=== PATIENT | female | born 1935 | race Caucasian/White ===

== ENCOUNTER 2017-09-02 10:08 | Outpatient (CLI) | payer MEDICARE ==
--- NOTE | 2017-09-02 11:37 | ULT ---
BILATERAL RENAL ULTRASOUND: HISTORY: Urinary tract infections, 81-year-old female. DATE: 09/02/17. FINDINGS: Multiple longitudinal and transverse images of the kidneys and bladder are obtained using a multiher tz curvilinear transducer. Real-time and color flow images demonstrate both kidneys to be of normal contour, axis, and size. The right kidney measures 9.7 and the left kidney 10.0 cm from pole to po le. No evidence of renal parenchymal masses or lesions seen. No evidence of hydronephrosis is seen . The bladder has 3-dimensional measurements of 6.8 x 7.2 x 7.6 cm with 3D volume of 196 mL. IMPRESSION: Normal renal ultrasound. POS: [facility]
== END 2017-09-02 10:09 | disposition home or self-care (01) ==
LOC: ULT 10:08
PROVIDERS: ATTEND Urology
DX: Z87.440 Personal history of urinary (tract) infections (principal)
CPT/HCPCS: 76770

== ENCOUNTER 2018-04-09 12:13 | Outpatient (CLI) | payer MEDICARE ==
--- NOTE | 2018-04-09 14:08 | RAD ---
PA AND LATERAL CHEST: History: Dyspnea. FINDINGS: Comparison made with exam of 07-26-16. The heart size is normal. The lungs are well expanded with chronic changes. No lobar consolidation, p neumothorax or pleural effusions are seen. IMPRESSION: No acute process. POS: [facility]
== END 2018-04-09 12:14 | disposition home or self-care (01) ==
LOC: RAD 12:13
PROVIDERS: ATTEND Internal Medicine
DX: R06.00 Dyspnea, unspecified (principal)
CPT/HCPCS: 71046

== ENCOUNTER 2018-06-09 07:55 | Day surgery (SDC) | payer MEDICARE ==
--- NOTE | 2018-06-04 21:09 | HP ---
DATE OF SERVICE: 06/04/2018 This is a dictation that should be coupled with a bronchoscopy service that should be scheduled for on, 06/09/2018. SERVICE: Pulmonary Medicine. PRIMARY CARE PHYSICIAN: Carlos Bradley Jr., M.D. CHIEF COMPLAINT: Pulmonary infiltrate. HISTORY OF PRESENT ILLNESS: The patient is an 82-year-old white female with past medical history sig nificant for rheumatoid arthritis with biopsy proven rheumatoid nodules, bronchiectasis, and intersti tial lung changes. We have been watching her CT scan over a period of time. It looks like she has h ad progressive infiltrates. Additionally, she is having recurring episodes of bronchitis requiring a ntibiotics and brief course of steroids. Because these infiltrates are slightly progressive, I would like to prove that she does not have any progressive inflammatory/infectious lung changes. She callie es any current fevers, chills, nausea or vomiting. She has been having some weight reduction and pooja ly cough productive of purulent sputum. PAST MEDICAL HISTORY: 1. Rheumatoid arthritis. 2. Osteoporosis. 3. Rheumatoid arthritis associated interstitial lung disease. 4. Pulmonary nodules, biopsy proven to represent rheumatoid nodules. 5. Gastroesophageal reflux disease. 6. Hypertension. 7. Osteopenia. 8. Interstitial cystitis. 9. History of B cell lymphoma, in remission since 11/2009. PAST SURGICAL HISTORY: 1. Cholecystectomy with intraoperative cholangiogram in 2011. 2. Cystoscopy. 3. Right subclavian MediPort placement. 4. Left-sided cervical lymph node biopsy. 5. Lung biopsy for rheumatoid nodule in 2004. 6. Hysterectomy. 7. Appendectomy. 8. Tonsillectomy. 9. Colonoscopy in 2002. FAMILY HISTORY: Positive for diabetes, kidney disease, arthritis. Not pertinent to this evaluation. SOCIAL HISTORY: Negative for alcohol, tobacco or illicit drug use. She has no exposure to chemicals , dust, asbestosis or tuberculosis. ALLERGIES: SULFA. MEDICATIONS: 1. Rituximab, currently being administered through [facility] by Dr. Massey. 2. Omeprazole 20 mg p.o. daily. 3. Nitrofurantoin 50 mg p.o. daily. 4. Montelukast 10 mg p.o. daily. 5. Enablex 7.5 mg p.o. daily. 6. Advair Diskus 250/50 one inhalation b.i.d. 7. Leflunomide 10 mg p.o. daily. 8. Albuterol HFA 2 puffs inhaled q.4 hours as needed. 9. DuoNeb nebulized q.4 hours as needed. 10. Sodium chloride 7% saline nebulized daily prior to physiotherapy. REVIEW OF SYSTEMS: General, head, ears, eyes, nose, throat, cardiovascular, respiratory, GI, , mus culoskeletal, neurologic and skin is negative except as mentioned in the HPI. PHYSICAL EXAMINATION: VITAL SIGNS: Afebrile, pulse 71, respirations 13, saturation 96% on room air. GENERAL: The patient is awake, alert, no apparent distress. HEENT: Normocephalic, atraumatic. Sclerae are white, conjunctivae pink. Oral mucosa is moist witho ut lesions. LUNGS: Excellent air entry. There is no prolonged expiratory phase. Extensive rhonchi are present throughout bilateral lung perez. There are no crackles or wheezing appreciated. HEART: Normal rate, regular. ABDOMEN: Soft, nontender and nondistended. Bowel sounds are positive. MUSCULOSKELETAL: No cyanosis or clubbing. There is trace 1+ pitting in the bilateral lower extremit ies. Ulnar deviation of bilateral hands is present. NEUROLOGIC: Grossly nonfocal. IMAGING DATA: CT of the chest today demonstrates progressive changes including bronchiectasis, inter stitial fibrosis and pulmonary nodules. The nodules are roughly stable in size. There is certainly not an index nodule that is growing significantly. There is also pulmonary infiltrate with minimal t ree, but changes present in the right middle lobe and lingula. ASSESSMENT: 1. Rheumatoid arthritis with associated interstitial lung disease. 2. Bronchiectasis secondary to rheumatoid arthritis. 3. Rheumatoid nodules, previously biopsy proven. 4. Chronic obstructive pulmonary disease. 5. Gastroesophageal reflux disease. 6. History of lymphoma. 7. Pulmonary infiltrate. DISCUSSION AND PLAN: We will proceed with bronchoscopy, so we can prove that this is not a mycobacte rial infection that would require us to put her on protracted course of antibiotics. For the bronchi ectasis, we will once again try to set her up with physiotherapy. We will provide her with a prescri ption for saline which is 7% saline which will be nebulized 30 minutes prior to each physiotherapy ep isode. We will have her return to clinic in roughly 6 weeks or sooner if the bacterial cultures come back soon. Hopefully, we will be able to schedule a bronchoscopy for Saturday. I verified that shahbaz landrum is not on any current blood thinners or antiplatelet medications.
[2018-06-09] MEDS ORDERED: Fentanyl 100 MCG/2 ML VIAL ONE (11:12)
[2018-06-09 13:33] LABS: BF Color White; Body Fluid Source Bronchioalveol Lavag; Clarity Hazy (Clear); Tube # EDTA
[2018-06-09 13:34] LABS: BF RBC Count - Manual 425 /cumm; BF WBC/Nonhematics Ct. - Manua 2875 /cumm
[2018-06-09 13:43] LABS: BF Segmented Neutrophils 81 %; Cell Count Non Hematic 15 %; Lymphocytes 4 %
[2018-06-09] MEDS ORDERED: Ondansetron HCl/PF 4 MG/2 ML Vial ONE (15:00)
[2018-06-09] MEDS ORDERED: Succinylcholine Chloride 20 MG/ML 10 ml SYRINGE FS ONE (15:00)
[2018-06-09] MEDS ORDERED: Dexamethasone 20 MG/5 ML VIAL ONE (15:00)
[2018-06-09] MEDS ORDERED: PROPOFOL 200 MG/20 ML VIAL ONE (15:00)
[2018-06-09] MEDS ORDERED: Lidocaine 1% PF 5 ML VIAL ONE (15:00)
[2018-06-09] MEDS ORDERED: Glycopyrrolate 0.2 MG/ML 5 ML SYRINGE ONE (15:00)
--- NOTE | 2018-06-09 22:24 | OP ---
DATE OF SERVICE: 06/09/2018 SERVICE: Pulmonary Medicine. PROCEDURES: Fiberoptic bronchoscopy with: 1. Visual airway inspection. 2. Bronchial alveolar lavage from the right upper lobe. 3. Bronchial wash. 4. Transbronchial biopsies from the right upper lobe and right middle lobe. PREPROCEDURE DIAGNOSES: 1. Bronchiectasis. 2. Pulmonary infiltrate. POSTPROCEDURE DIAGNOSES: 1. Bronchiectasis. 2. Pulmonary infiltrate. PROCEDURE MANAGEMENT SME: Wayne Barlow MD MEDICATIONS USED: For list of medications, please refer to anesthesia documentation. PREANESTHESIA ASSESSMENT: H and P had been performed. The patient's medications and allergies were reviewed. Informed consent was obtained after discussing the risks, benefits, and rationale for perf orming the procedure as well as alternative options. DESCRIPTION OF PROCEDURE: A timeout was performed, identifying the correct procedure and patient wit h name and date of . A diagnostic fiberoptic bronchoscope was introduced through the 7.5-Bengali endotracheal tube. The bronchoscope was advanced into the trachea where a tracheobronchial tree ins pection was carried out with clear identification of the right upper lobe, right middle lobe, right l ower lobe, left upper lobe, lingula, and left lower lobe. Anatomy was normal to the segmental level. Bronchial washing was obtained of all the secretions throughout her bilateral lungs. We then did a formal bronchioalveolar lavage in the right upper lobe. Endobronchial biopsies were obtained from b oth the right upper lobe and right middle lobe under fluoroscopic guidance. Hemostasis was verified and the bronchoscope was subsequently removed from the patient. Post-procedure fluoroscopy did not d emonstrate a pneumothorax. FINDINGS: 1. No endobronchial disease was identified. 2. Secretions were copious and involved all major segments. 3. Multiple mucous plugs were suctioned. SPECIMENS OBTAINED: 1. Bronchial wash for Gram stain culture. 2. Bronchoalveolar lavage from the right upper lobe for routine studies. 3. Transbronchial biopsies from the right upper lobe and right middle lobe. COMPLICATIONS: None. ESTIMATED BLOOD LOSS: 5 mL FLUOROSCOPY TIME: Less than 2 minutes. DISPOSITION: The patient will be discharged home with post-procedure instructions after she meets cr augustinia. She will return to clinic as previously directed.
[2018-06-12 10:24] LABS: Fungus Stain Final report (.)
== END 2018-06-09 12:07 | disposition home or self-care (01) ==
LOC: SDC 07:55
PROVIDERS: ATTEND Internal Medicine
PROC: 0BDD8ZX Extraction of Right Middle Lung Lobe, Via Natural or Artificial Opening Endoscopic, Diagnostic (ICD-10-PCS; principal; 2018-06-09)
PROC: 0BDC8ZX Extraction of Right Upper Lung Lobe, Via Natural or Artificial Opening Endoscopic, Diagnostic (ICD-10-PCS; 2018-06-09)
PROC: 0B9C8ZX Drainage of Right Upper Lung Lobe, Via Natural or Artificial Opening Endoscopic, Diagnostic (ICD-10-PCS; 2018-06-09)
DX: J98.4 Other disorders of lung (principal); M06.9 Rheumatoid arthritis, unspecified; J84.9 Interstitial pulmonary disease, unspecified; M81.0 Age-related osteoporosis without current pathological fracture; K21.9 Gastro-esophageal reflux disease without esophagitis; I10 Essential (primary) hypertension; J44.9 Chronic obstructive pulmonary disease, unspecified; M85.80 Other specified disorders of bone density and structure, unspecified site; Z98.890 Other specified postprocedural states; Z88.2 Allergy status to sulfonamides; Z79.899 Other long term (current) drug therapy; Z88.1 Allergy status to other antibiotic agents
CPT/HCPCS: 76000; 85060; 87070; 87102; 87116; 87205; 87206; 88112; 88305; 88312; 88313; 89051; 96374; J1100; J2001; J2405; J2704; J3010; J7620

== ENCOUNTER 2018-09-04 07:21 | Outpatient (CLI) | payer MEDICARE ==
--- NOTE | 2018-09-04 09:23 | MRI ---
MRI BRAIN WITH AND WITHOUT CONTRAST: Technique: Multiplanar, multisequence MRI images were obtained of the brain. Post contrast images wer e obtained with administration of 10 cc MultiHance IV. Indications: Mental status change. Assess for cerebritis or other brain infection. FINDINGS: Mild cortical volume loss consistent with age. Mild to moderate chronic ischemic white matter change. No evidence of restricted diffusion. No mass or edema. No abnormal enhancement. No abnormal dural or menengial enhancement seen. The intracranial internal carotid arteries and proximal cerebral arteries show flow voids. Basilar ar juve is patent. There is mucosal edema involving the left mastoid air cells. IMPRESSION: 1. Mild cortical atrophy and moderate chronic ischemic white matter change. 2. Mucosal edema in the left mastoid air cells. POS: [facility]
== END 2018-09-04 07:22 | disposition home or self-care (01) ==
LOC: BICMRI 07:21
PROVIDERS: ATTEND Internal Medicine Infectious Disease
DX: A43.0 Pulmonary nocardiosis (principal); G31.9 Degenerative disease of nervous system, unspecified; H74.8X2 Other specified disorders of left middle ear and mastoid
CPT/HCPCS: 70553; 82565

== ENCOUNTER → 2018-09-15 | Day surgery (SDC) | payer MEDICARE ==
[~2018-09-15] MED LIST: cefTRIAXone\\ROCEPHIN 2 GM VIAL ONE
--- NOTE | 2018-09-15 09:59 | SPC ---
SONOGRAPHIC GUIDED LEFT UPPER EXTREMITY PICC PLACEMENT: History: Lung infection. Long-term antibiotics. FINDINGS: After explaining the procedure and answering all questions, the left upper extremity was prepped and draped in the usual sterile fashion. Sterile technique, buffered local anesthesia, sonographic guidan ce, and a 22 gauge needle were used to carefully access the left basilic vein. Standard technique was then used to place the tip of a 5 Uzbek single lumen PICC so that the tip lies at the level of supe rior vena cava. Catheter was flushed and secured externally. Patient tolerated the procedure well and was dismissed in good condition. Fluoro time: 0 seconds IMPRESSION: Technically successful left upper extremity PICC placement. Catheter is now ready for use. POS: [facility]
== END ==
LOC: SPEC 08:08
PROVIDERS: ATTEND Internal Medicine Infectious Disease
PROC: 02HV33Z Insertion of Infusion Device into Superior Vena Cava, Percutaneous Approach (ICD-10-PCS; principal; 2018-09-15)
PROC: B548ZZA Ultrasonography of Superior Vena Cava, Guidance (ICD-10-PCS; 2018-09-15)
DX: A43.0 Pulmonary nocardiosis (principal); Z79.52 Long term (current) use of systemic steroids; Z79.899 Other long term (current) drug therapy; Z88.1 Allergy status to other antibiotic agents; Z88.2 Allergy status to sulfonamides
CPT/HCPCS: 36569; C1751; J0696; J1642

== ENCOUNTER 2018-12-02 12:15 | Outpatient (CLI) | payer MEDICARE ==
--- NOTE | 2018-12-02 14:32 | CT ---
CT CHEST WITHOUT CONTRAST: HISTORY: Sarcoidosis. Recent antibiotic treatment for infection. COMPARISON: Chest CT from 06/04/2018. FINDINGS: There is extensive bilateral perilymphatic micro-nodules, as well as bronchiectasis. There are numer ous scattered pulmonary nodules within the interstitium, along the peribronchial vascular interstitiu m. There is, however, a nodular within the right mid lung with some peripheral spiculated margin, measur ing 8 mm. This is more suspicious than any of the other nodules. There are upper lobe predominant r eticular opacities with traction bronchiectasis, architectural distortion, and volume loss. There are enumerable mildly prominent mediastinal lymph nodes. The pulmonary trunk is enlarged. The aorta is nonaneurysmal. No evidence for active pneumonia. No thoracic spine compression fracture. IMPRESSION: 1. 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 2. No evidence for active bronchopneumonia. 3. Somewhat atypical 8 mm nodule in the right middle lobe, which likely represents noncaseating gran uloma. Follow up in 3 months recommended to evaluate for malignancy. CODE: T POS: [facility]
== END 2018-12-02 12:16 | disposition home or self-care (01) ==
LOC: BICCT 12:15
PROVIDERS: ATTEND Internal Medicine Infectious Disease
DX: A43.9 Nocardiosis, unspecified (principal); R91.1 Solitary pulmonary nodule
CPT/HCPCS: 71250

== ENCOUNTER 2020-06-27 12:38 | Outpatient (CLI) | payer MEDICARE ==
--- NOTE | 2020-06-27 13:31 | RAD ---
EXAM: Single view of the abdomen HISTORY: MRI safety COMPARISON: None FINDINGS: Single view of the abdomen shows a nonspecific, nonobstructive bowel gas pattern. A left-si ded sacral stimulator is seen. No suspicious calcifications are seen. Vascular calcifications are present. Cholecystectomy clips are present. The bones are unremarkable. IMPRESSION: Left sacral stimulator
== END 2020-06-27 12:39 | disposition home or self-care (01) ==
LOC: BICMRI 12:38
PROVIDERS: ATTEND Family Medicine
DX: G31.84 Mild cognitive impairment of uncertain or unknown etiology (principal); Z96.82 Presence of neurostimulator
CPT/HCPCS: 70551; 74018

== ENCOUNTER 2020-11-01 09:37 | Outpatient (CLI) | payer MEDICARE ==
--- NOTE | 2020-11-01 13:34 | CT ---
HIGH RESOLUTION CT OF CHEST PERFORMED WITHOUT CONTRAST ENHANCEMENT: 11/01/20 HISTORY: Rheumatoid lung disease. There are extensive interstitial fibrotic lung changes more basilar predominant. There is evidence of honeycombing which is most pronounced within the left lower lobe. No rheumatoid nodules are identifi ed. There is mild bronchiectatic change. No pleural effusions. Small nonspecific prevascular and right paratracheal lymph nodes are noted. Visualized liver parenchyma shows no focal findings. IMPRESSION: Extensive interstitial fibrotic lung change, also evidence for honeycombing and mild bronchiectatic c hange. The honeycombing is most pronounced in the lower lobes and more severe in the left lower lobe. POS: [facility]
== END 2020-11-01 09:38 | disposition home or self-care (01) ==
LOC: BICCT 09:37
PROVIDERS: ATTEND Internal Medicine Critical Care Medicine
DX: M05.10 Rheumatoid lung disease with rheumatoid arthritis of unspecified site (principal)
CPT/HCPCS: 71250

== ENCOUNTER 2021-11-15 14:14 | Inpatient (IN) | payer MEDICARE ==
[2021-11-15 15:04] LABS: #Basophils 0.1 thou/uL (0.0-0.2); #Lymphocytes 3.9 thou/uL (1.20-3.40); #Monocytes 0.5 thou/uL (0.11-0.59); #Neutrophils 12.3 thou/uL (1.40-6.50); %Basophils 0.5 % (0.0-1.0); %Lymphocytes 23.2 % (21.0-51.0); %Monocytes 3.1 % (0.0-10.0); %Neutrophils 73.2 % (42.0-75.0); Hemoglobin 12.1 g/dL (12.0-16.0); Mean Corpuscular HGB CONC 32.8 g/dL (32.0-36.0); Mean Corpuscular Hemoglobin 32.5 pg (27.0-31.0); Mean Corpuscular Volume 99.2 fL (78.0-98.0); Mean Platelet Volume 7.4 fL (7.4-10.4); Platelet Count 258 thou/uL (130-400); RBC Distribution Width 14.2 % (11.5-14.5); Red Blood Cell (RBC) Count 3.73 mill/uL (4.20-5.40); White Blood Cell (WBC) Count 16.8 thou/uL (4.8-10.8)
[2021-11-15 15:15] LABS: INR-International Normal Ratio 1.2; Prothrombin Time 15.8 sec (12.0-14.7)
[2021-11-15] MEDS ORDERED: Sodium Chloride 0.9% 1,000 ML IV SCH ×2 (15:15→15:45)
[2021-11-15] MEDS ORDERED: Vancomycin 1 GM in Premix Bag 1 BAG IVPB SCH ×2 (15:15→15:45)
[2021-11-15] MEDS ORDERED: Meropenem 1 GM in Sodium Chloride 0.9% 100 ML IVPB SCH (15:15)
[2021-11-15 15:16] LABS: PTT 30.5 sec (22.9-36.1)
[2021-11-15 15:23] LABS: ALT (SGPT) 9 U/L (8-55); AST (SGOT) 16 U/L (5-34); Albumin 2.9 g/dL (3.4-4.8); Alkaline Phosphatase 57 U/L (40-110); Anion Gap 18 mmol/L (10-20); BUN (Urea Nitrogen) 23 mg/dL (9.8-20.1); Bilirubin, Total 0.5 mg/dL (0.2-1.2); Calc. Creatinine Clearance 0 mL/min (70-130); Calcium 9.2 mg/dL (7.8-10.44); Carbon Dioxide 21 mmol/L (23-31); Chloride 103 mmol/L (98-107); Glucose 155 mg/dL (83-110); Potassium 3.7 mmol/L (3.5-5.1); Protein, Total 7.9 g/dL (5.8-8.1); Sodium 138 mmol/L (136-145)
[2021-11-15 15:42] LABS: Bacteria/HPF 4+ HPF (None Seen); Bilirubin Negative (Negative); Blood, Urine 2+ (Negative); Clarity Turbid (Clear); Glucose, Urine (Dipstick) Normal (Negative); Ketone, Urine Negative (Negative); Leukocyte 250 Leu/uL (Negative); Nitrite Negative (Negative); Protein, Urine (Dipstick) 30 mg/dL (Neg-Trace); RBC/HPF 21-50 HPF (0-3); Specific Gravity, Urine 1.023 (1.002-1.036); Squamous Epithelial 0-3 HPF (0-3); Urobilinogen Normal mg/dL (Less than 2); WBC/HPF Greater than 50 HPF (0-3)
[2021-11-15 16:46] LABS: SARS-CoV-2 NAA Rapid Test Not Detected (NotDetected)
[2021-11-15] MEDS ORDERED: Vancomycin 1 GM/200 ML BAG ONE (16:53)
[2021-11-15 18:44] LABS: Lactic Acid 1.6 mmol/L (0.5-2.2)
[2021-11-15] MEDS ORDERED: Ondansetron PF 4 MG/2 ML Vial IVP PRN (19:43)
[2021-11-15] MEDS ORDERED: Acetaminophen 650 MG Suppository PR PRN (19:43)
[2021-11-15] MEDS ORDERED: Bisacodyl 10 MG SUPP PR PRN (19:43)
[2021-11-15] MEDS ORDERED: Bisacodyl 5 MG TAB PO PRN (19:43)
[2021-11-15] MEDS ORDERED: Guaifenesin DM 100-10/5 ML UDCUP PO PRN (19:43)
[2021-11-15] MEDS ORDERED: Acetaminophen 325 MG TAB PO PRN (19:43)
[2021-11-15] MEDS ORDERED: Enoxaparin Sodium 40 MG/0.4 ML SYRINGE SC SCH (19:45)
[2021-11-15] MEDS ORDERED: methylPREDNISolone Sod Succ 40 MG VIAL IVP SCH (20:45)
[2021-11-15] MEDS ORDERED: Oseltamivir 75 MG CAP PO SCH (21:00)
[2021-11-15] MEDS ORDERED: Famotidine/PF 20 mg/2ml Vial SLOW IVP SCH (21:00)
[2021-11-15] MEDS: Megestrol Acetate 800 MG/20 ML UDCUP PO SCH (21:01)
[2021-11-15] MEDS: Sodium Chloride 0.9% 1,000 ML IV SCH (21:01)
[2021-11-15 21:06] VITALS: BMI 13.9
[2021-11-16] MEDS: Meropenem 1 GM in Sodium Chloride 0.9% 100 ML IVPB SCH ×2 (00:31→12:21)
[2021-11-16 07:10] LABS: #Lymphocytes 1.3 thou/uL (1.20-3.40); #Monocytes 0.2 thou/uL (0.11-0.59); #Neutrophils 6.3 thou/uL (1.40-6.50); %Basophils 0.3 % (0.0-1.0); %Eosinophils 0.1 % (0.0-10.0); %Lymphocytes 16.3 % (21.0-51.0); %Monocytes 2.6 % (0.0-10.0); %Neutrophils 80.7 % (42.0-75.0); Hemoglobin 10.6 g/dL (12.0-16.0); Mean Corpuscular HGB CONC 31.2 g/dL (32.0-36.0); Mean Corpuscular Volume 99.5 fL (78.0-98.0); Mean Platelet Volume 7.8 fL (7.4-10.4); Platelet Count 196 thou/uL (130-400); RBC Distribution Width 14.1 % (11.5-14.5); White Blood Cell (WBC) Count 7.8 thou/uL (4.8-10.8)
[2021-11-16 07:31] LABS: ALT (SGPT) 8 U/L (8-55); AST (SGOT) 15 U/L (5-34); Albumin 2.4 g/dL (3.4-4.8); Alkaline Phosphatase 46 U/L (40-110); Anion Gap 11 mmol/L (10-20); BUN (Urea Nitrogen) 20 mg/dL (9.8-20.1); Bilirubin, Total 0.3 mg/dL (0.2-1.2); Calc. Creatinine Clearance 44 mL/min (70-130); Calcium 8.7 mg/dL (7.8-10.44); Carbon Dioxide 25 mmol/L (23-31); Chloride 106 mmol/L (98-107); Globulin 4.2 g/dL (2.4-3.5); Glucose 138 mg/dL (83-110); Potassium 3.6 mmol/L (3.5-5.1); Protein, Total 6.6 g/dL (5.8-8.1); Sodium 138 mmol/L (136-145)
[2021-11-16 07:36] LABS: Hemoglobin A1c 5.2 % (4.0-6.0)
[2021-11-16] MEDS: Megestrol Acetate 800 MG/20 ML UDCUP PO SCH ×2 (08:54→20:45)
[2021-11-16] MEDS: Oseltamivir 6 MG/ML ORAL SUSP PO SCH ×2 (08:54→20:50)
[2021-11-16] MEDS: methylPREDNISolone Sod Succ 40 MG VIAL IVP SCH (08:54)
[2021-11-16] MEDS ORDERED: Vancomycin HCl 500 MG in Sodium Chloride 0.9% 100 ML IVPB SCH (17:00)
[2021-11-16] MEDS: Sodium Chloride 0.9% 1,000 ML IV SCH (17:48)
[2021-11-16] MEDS: Famotidine/PF 20 mg/2ml Vial SLOW IVP SCH (20:45)
[2021-11-16] MEDS ORDERED: Enoxaparin Sodium 30 MG/0.3 ML SYRINGE SC SCH (21:00)
[2021-11-17] MEDS: Megestrol Acetate 800 MG/20 ML UDCUP PO SCH ×2 (08:22→20:56)
[2021-11-17] MEDS: methylPREDNISolone Sod Succ 40 MG VIAL IVP SCH (08:23)
[2021-11-17] MEDS: Oseltamivir 6 MG/ML ORAL SUSP PO SCH ×2 (08:23→20:57)
[2021-11-17] MEDS: Sodium Chloride 0.9% 1,000 ML IV SCH ×2 (11:11→14:37)
[2021-11-17] MEDS: Famotidine/PF 20 mg/2ml Vial SLOW IVP SCH (20:56)
[2021-11-17] MEDS ORDERED: Enoxaparin Sodium 40 MG/0.4 ML SYRINGE SC SCH (21:00)
[2021-11-18] MEDS: Sodium Chloride 0.9% 1,000 ML IV SCH ×2 (06:31→08:57)
[2021-11-18] MEDS: Oseltamivir 6 MG/ML ORAL SUSP PO SCH ×2 (08:57→21:46)
[2021-11-18] MEDS: methylPREDNISolone Sod Succ 40 MG VIAL IVP SCH (08:58)
[2021-11-18] MEDS: Megestrol Acetate 800 MG/20 ML UDCUP PO SCH ×2 (08:58→21:45)
[2021-11-18] MEDS ORDERED: Diltiazem 125 MG in Sodium Chloride 0.9% 100 ML IVPB SCH (14:45)
[2021-11-18] MEDS ORDERED: Digoxin 0.5 MG/2 ML AMP SLOW IVP SCH (15:00)
[2021-11-18 15:30] LABS: Anion Gap 11 mmol/L (10-20); BUN (Urea Nitrogen) 17 mg/dL (9.8-20.1); Calc. Creatinine Clearance 45 mL/min (70-130); Calcium 8.7 mg/dL (7.8-10.44); Carbon Dioxide 27 mmol/L (23-31); Chloride 100 mmol/L (98-107); Glucose 124 mg/dL (83-110); Magnesium 1.6 mg/dL (1.6-2.6); Potassium 3.3 mmol/L (3.5-5.1); Sodium 135 mmol/L (136-145)
[2021-11-18] MEDS ORDERED: Metoprolol Tartrate 25 MG TAB PO SCH (17:00)
[2021-11-18] MEDS ORDERED: Flecainide 50 MG TAB PO SCH (17:00)
[2021-11-18] MEDS ORDERED: Potassium Chloride 20 MEQ TAB PO SCH (20:09)
[2021-11-18] MEDS: Enoxaparin Sodium 40 MG/0.4 ML SYRINGE SC SCH (21:45)
[2021-11-18] MEDS: Famotidine/PF 20 mg/2ml Vial SLOW IVP SCH (21:45)
[2021-11-19 04:24] LABS: Anion Gap 9 mmol/L (10-20); BUN (Urea Nitrogen) 24 mg/dL (9.8-20.1); Calc. Creatinine Clearance 44 mL/min (70-130); Calcium 8.2 mg/dL (7.8-10.44); Carbon Dioxide 26 mmol/L (23-31); Chloride 103 mmol/L (98-107); Glucose 86 mg/dL (83-110); Magnesium 1.6 mg/dL (1.6-2.6); Potassium 4.1 mmol/L (3.5-5.1); Sodium 134 mmol/L (136-145)
[2021-11-19] MEDS: Nitrofurantoin Monohyd/M-Cryst 100 MG CAP PO SCH ×2 (09:55→20:25)
[2021-11-19] MEDS: Oseltamivir 6 MG/ML ORAL SUSP PO SCH ×2 (09:55→20:22)
[2021-11-19] MEDS: Magnesium Oxide 400 MG TAB PO SCH ×2 (09:55→20:25)
[2021-11-19] MEDS: Enoxaparin Sodium 40 MG/0.4 ML SYRINGE SC SCH (09:56)
[2021-11-19] MEDS: Megestrol Acetate 800 MG/20 ML UDCUP PO SCH ×2 (09:56→20:24)
[2021-11-19] MEDS: predniSONE 5 MG TAB PO SCH (09:56)
[2021-11-19] MEDS: Sodium Chloride 0.9% 1,000 ML IV SCH (17:41)
[2021-11-19] MEDS: Apixaban 2.5 MG TAB PO SCH (20:25)
[2021-11-19] MEDS: Famotidine/PF 20 mg/2ml Vial SLOW IVP SCH (20:26)
[2021-11-20 08:08] LABS: #Basophils 0.1 thou/uL (0.0-0.2); #Eosinphils 0.1 thou/uL (0.0-0.7); #Lymphocytes 3.5 thou/uL (1.20-3.40); #Monocytes 0.6 thou/uL (0.11-0.59); #Neutrophils 7.1 thou/uL (1.40-6.50); %Basophils 0.5 % (0.0-1.0); %Eosinophils 0.7 % (0.0-10.0); %Lymphocytes 30.7 % (21.0-51.0); %Monocytes 5.4 % (0.0-10.0); %Neutrophils 62.7 % (42.0-75.0); Mean Corpuscular HGB CONC 31.7 g/dL (32.0-36.0); Mean Corpuscular Hemoglobin 30.8 pg (27.0-31.0); Mean Corpuscular Volume 97.1 fL (78.0-98.0); Mean Platelet Volume 7.5 fL (7.4-10.4); Platelet Count 235 thou/uL (130-400); RBC Distribution Width 13.8 % (11.5-14.5); Red Blood Cell (RBC) Count 3.56 mill/uL (4.20-5.40); White Blood Cell (WBC) Count 11.4 thou/uL (4.8-10.8)
[2021-11-20] MEDS: Megestrol Acetate 800 MG/20 ML UDCUP PO SCH (09:00)
[2021-11-20] MEDS: Magnesium Oxide 400 MG TAB PO SCH (09:00)
[2021-11-20] MEDS: predniSONE 5 MG TAB PO SCH (09:00)
[2021-11-20] MEDS: Nitrofurantoin Monohyd/M-Cryst 100 MG CAP PO SCH (09:00)
[2021-11-20] MEDS: Apixaban 2.5 MG TAB PO SCH (09:01)
[2021-11-20] MEDS: Sodium Chloride 0.9% 1,000 ML IV SCH (12:06)
[2021-11-20] MEDS: Oseltamivir 6 MG/ML ORAL SUSP PO SCH (12:06)
[2021-11-20 12:08] VITALS: BP 120/59; TEMP 98.2
== END 2021-11-20 14:55 | DRG 871 ==
LOC: ERS 14:14 → ERHOLD 16:46 → T4-A 19:38 → OBSVTOIN 11-16 09:42 → 2NO 11-18 15:29
PROVIDERS: ADMIT Internal Medicine; ATTEND Internal Medicine
DX: A41.89 Other specified sepsis (principal); G93.41 Metabolic encephalopathy; E43 Unspecified severe protein-calorie malnutrition; J84.9 Interstitial pulmonary disease, unspecified; Z68.1 Body mass index [BMI] 19.9 or less, adult; R64 Cachexia; N30.00 Acute cystitis without hematuria; Z20.822 Contact with and (suspected) exposure to COVID-19; J84.10 Pulmonary fibrosis, unspecified; K21.9 Gastro-esophageal reflux disease without esophagitis; I10 Essential (primary) hypertension; G30.9 Alzheimer's disease, unspecified; F02.80 Dementia in other diseases classified elsewhere, unspecified severity, without behavioral disturbance, psychotic disturbance, mood disturbance, and anxiety; I48.0 Paroxysmal atrial fibrillation; J10.1 Influenza due to other identified influenza virus with other respiratory manifestations; M06.9 Rheumatoid arthritis, unspecified; Z92.21 Personal history of antineoplastic chemotherapy; Z79.899 Other long term (current) drug therapy; Z88.2 Allergy status to sulfonamides; Z88.1 Allergy status to other antibiotic agents; Z90.49 Acquired absence of other specified parts of digestive tract; Z90.710 Acquired absence of both cervix and uterus; Z91.040 Latex allergy status
CPT/HCPCS: 0240U; 36415; 71045; 80048; 80053; 81003; 81015; 83036; 83605; 83735; 84443; 84484; 85025; 85610; 85730; 87040; 87086; 93005; 93010; 93306; 94640; 94760; 96372; 96375; 96376; G0378; J1160; J1650; J2185; J2920; J3370; J3490; J7050; J7512; J7620; S0028